=== PATIENT | female | born 1950 | race Caucasian/White ===

== ENCOUNTER → 2017-03-19 | Outpatient (CLI) | payer MEDICARE, BC ==
--- NOTE | ~2017-03-19 | US77 ---
[facility] of [facility] RADIOLOGY TEXT RESULTS PATIENT: WILNER NEELY LOCATION: [facility] : 48 UNIT #: [id number] AGE: [address]: George Cartwright MD SEX: F ORDER DR: [id number] [facility] [address] [place], [place] [address] [id number] O MR#: [id number] Acc #: [id number] NAME: WILNER NEELY : 1950 SEX: F STUDY DATE/TIME: 03/19/2017 7:49 UNIT: [facility] ROOM: STUDY DESCRIPTION: US Kidney Bilateral Complete Attending Physician: George Cartwright M.D. Referring Physician: George Cartwright M.D. Ordering Physician: George Cartwright M.D. Primary Care Physician: George Cartwright M.D. MEDICAL IMAGING REPORT This report is preliminary unless electronic signature is present EXAM Renal ultrasound bilateral, 03/19/2017 INDICATION 66-year-old female with chronic renal disease (stage 3). Medication-controlled hypertension. History of cholecystectomy, lung surgery and gastric surgery. TECHNIQUE Sonographic imaging of the kidneys was performed bilaterally. We have no comparisons. FINDINGS The right kidney measures 8.3 cm long axis and the left 9.9 cm. No shadowing stone or hydronephrosis on either side. Echogenicity is in the normal range and symmetric. Bladder unremarkable. IMPRESSION Negative renal ultrasound. Portions of both kidneys were obscured from view by a limited sonographic window. Dictated by... Mor Zamarripa M.D. THIS IS AN ELECTRONICALLY VERIFIED REPORT Mor Zamarripa M.D. at 03/21/2017 3:25 PM GLENNY/cesia TD: 03/19/2017 23:41 JOB #: [id number] [facility] RADIOLOGY TEXT RESULTS PATIENT: WILNER NEELY [id number] : 48 UNIT #: [id number] AGE: [address]: George Cartwright MD SEX: F ORDER DR: MEDICAL IMAGING REPORT Page 1 of 1 COPY
== END | disposition home or self-care (01) ==
LOC: CWCC 07:29
DX: N18.3 Chronic kidney disease, stage 3 (moderate) (principal)
CPT/HCPCS: 76770